=== PATIENT | male | born 1945 | race Caucasian/White ===

== ENCOUNTER → 2023-09-26 10:59 | Outpatient (REF) | payer MEDICARE, SELFPAY | LOC: HO.SL 10:59 | PROVIDERS: PCP Internal Medicine; Visit Provider Internal Medicine | DX: G47.33 Obstructive sleep apnea (adult) (pediatric) (principal) | CPT/HCPCS: 95806 ==

== ENCOUNTER → 2023-09-26 19:00 | Outpatient (BNV) | payer MEDICARE, SELFPAY | PROVIDERS: PCP Internal Medicine; Visit Provider Internal Medicine | DX: G47.33 Obstructive sleep apnea (adult) (pediatric) (principal) | CPT/HCPCS: 95806 ==